=== PATIENT | male | born 1995 | race Caucasian/White ===

== ENCOUNTER 2016-08-05 22:21 | Emergency (ER) | payer OTHER ==
[~2016-08-05] VITALS: Ht 172.7 cm; Wt 63.6 kg
[2016-08-05 22:26] VITALS: TEMP 98.1
[2016-08-05 23:17] LABS: BASO # 0.1 (0.0-0.2); EOS # 0.2 (0.0-0.7); EOS % 2.7 % (0-4.0); GRAN # 4.2 (1.4-6.5); GRAN % 52.5 % (42.2-75.2); HEMATOCRIT 40.6 % (42.0-52.0); HEMOGLOBIN 14.2 g/dl (13.5-18.0); LYMPH # 2.8 (1.2-3.4); LYMPH % 34.6 % (20.0-51.0); MEAN CELL VOLUME 85 fl (80.0-100.0); MEAN CORPUSCULAR HEMOGLOBIN 30 pg (27.0-31.0); MEAN CORPUSCULAR HGB CONC 35 g/dl (33.0-37.0); MONO # 0.7 (0.1-0.6); MONO % 9.1 % (1.7-9.3); PLATELET COUNT 260 K/mm3 (130-400); RED BLOOD COUNT 4.79 M/mm3 (4.20-5.60); REDCELL DISTRIBUTION WIDTH-CV 12.5 % (11.5-14.5)
[2016-08-05 23:25] LABS: PH 6 (5-8); SQUAMOUS EPITHELIAL None Seen /hpf; URINE APPEARANCE Clear; URINE BACTERIA None Seen /hpf; URINE BILIRUBIN Negative (NEGATIVE); URINE BLOOD 3+ (NEGATIVE); URINE COLOR Yellow; URINE GLUCOSE Negative (NEGATIVE); URINE KETONE Negative (NEGATIVE); URINE RBC >50 /hpf; URINE UROBILINOGEN Negative (NEGATIVE)
[2016-08-05 23:28] LABS: ALBUMIN 4.2 gm/dL (3.5-5.0); BILIRUBIN,TOTAL 0.6 mg/dL (0.0-1.0); CALCIUM 9.2 mg/dL (8.4-10.2); CREATININE, serum 1.36 mg/dL (0.66-1.25); TOTAL PROTEIN 6.6 gm/dL (6.4-8.2)
[2016-08-05 23:44] LABS: URINE WBC 20-50 /hpf
[2016-08-06] MEDS ORDERED: LEVAQUIN 2250 MG/TAB PO (01:46)
[2016-08-06] MEDS ORDERED: NORCO 325 MG-7.1 TAB PO (01:49)
[2016-08-06 02:22] VITALS: BP 117/65; PULSE 50
[2016-08-06 10:03] LABS: CHLAMYDIA/TRACH by PCR Male NOT DETECTED; Neisseria Gon by PCR Male NOT DETECTED
== END 2016-08-06 02:45 | disposition home or self-care (01) ==
LOC: COL.ER 22:21
PROVIDERS: Nurse Practitioner
DX: N34.2 Other urethritis (principal); R29.898 Other symptoms and signs involving the musculoskeletal system; R30.0 Dysuria
CPT/HCPCS: J0696; J1170; J1885; J7030